=== PATIENT | female | born 1955 | race African-American/Black ===

== ENCOUNTER 2018-04-05 06:46 | Day surgery (SDC) | payer BC ==
[2018-04-03 17:13] VITALS: BMI 28.8
[2018-04-05] MEDS ORDERED: PROPOFOL 20 ML ONE ×2 (06:52)
[2018-04-05] MEDS ORDERED: LIDOCAINE HCL/PF 2% SDV 5ML VIAL ONE (06:53)
[2018-04-05 07:15] VITALS: TEMP 98.2
[2018-04-05 10:22] VITALS: BP 122/70; PULSE 84
== END 2018-04-05 10:24 | disposition home or self-care (01) ==
LOC: FASU-ENDO 06:46
PROVIDERS: ATTEND Internal Medicine Gastroenterology
PROC: 0DJD8ZZ Inspection of Lower Intestinal Tract, Via Natural or Artificial Opening Endoscopic (ICD-10-PCS; principal; 2018-04-05 09:03)
DX: Z86.010 Personal history of colon polyps (principal)